=== PATIENT | female | born 1985 | race American Indian/Alaskan Native ===

== ENCOUNTER 2021-08-09 07:35 | Emergency (ER) | payer OTHER ==
[2021-08-09] MEDS ORDERED: diphenhydrAMINE 50 MG/ML VIAL IV ONE (08:07)
[2021-08-09] MEDS ORDERED: methylPREDNISolone Sod Succinate 125 MG/2 ML INJ IV ONE (08:07)
[2021-08-09] MEDS ORDERED: FAMOTIDINE 20 MG/2 ML INJ IV ONE (08:07)
--- NOTE | 2021-08-09 08:10 | Emergency Department Report ---
ED Allergic Reaction HPI - General Chief complaint: Allergic Reaction Stated complaint: SWOLLEN LIP Time Seen by Provider: 08/09/21 08:03 Source: patient Mode of arrival: Ambulatory Limitations: No Limitations - History of Present Illness Initial Comments: Patient is 36 years old female with history of hypertension on lisinopril. Patient presented to the ER complaining of upper lip swelling. Patient stated that symptoms started this morning. Patient denied any difficulty swallowing or difficulty breathing. No other swelling. MD Complaint: allergic reaction, facial swelling -: Sudden, This morning Exposure: medication Symptoms: lip swelling. denies: difficulty breathing, orolingual swelling, hoarseness, syncopy, dizziness, nausea Treatment Prior to Arrival: none Previous Allergy History: none - Related Data Home Medications Medication Instructions Recorded Confirmed Last Taken hydroCHLOROthiazide [HCTZ] 25 mg PO DAILY 08/09/21 08/09/21 08/09/21 lisinopriL [Lisinopril] 20 mg PO DAILY 08/09/21 08/09/21 08/09/21 Allergies Allergy/AdvReac Type Severity Reaction Status Date / Time lisinopril Allergy Angioedema Verified 08/09/21 09:17 ED Review of Systems ROS: Stated complaint: SWOLLEN LIP Other details as noted in HPI Comment: All other systems reviewed and negative Constitutional: denies: chills, fever Respiratory: denies: orthopnea, shortness of breath, SOB with exertion Cardiovascular: denies: chest pain, palpitations Gastrointestinal: denies: abdominal pain, nausea, vomiting Musculoskeletal: denies: back pain Neurological: denies: headache, weakness, numbness, paresthesias, confusion ED Past Medical Hx - Medications Home Medications: Home Medications Medication Instructions Recorded Confirmed Last Taken Type hydroCHLOROthiazide [HCTZ] 25 mg PO DAILY 08/09/21 08/09/21 08/09/21 History lisinopriL [Lisinopril] 20 mg PO DAILY 08/09/21 08/09/21 08/09/21 History ED Physical Exam - General Limitations: No Limitations General appearance: alert, in no apparent distress, anxious - Head Head exam: Present: atraumatic, normocephalic, normal inspection - Eye Eye exam: Present: normal appearance - ENT ENT exam: Present: normal exam, normal orophraynx, mucous membranes moist, other (Upper lip significantly swollen.) - Neck Neck exam: Present: normal inspection, full ROM. Absent: tenderness, meningismus - Respiratory Respiratory exam: Present: normal lung sounds bilaterally - Cardiovascular Cardiovascular Exam: Present: regular rate, normal rhythm, normal heart sounds - GI/Abdominal GI/Abdominal exam: Present: soft, normal bowel sounds. Absent: distended, tenderness, guarding, rebound, rigid, organomegaly, mass, bruit, pulsatile mass, hernia - Extremities Exam Extremities exam: Present: normal inspection, full ROM, normal capillary refill. Absent: tenderness, pedal edema, joint swelling, calf tenderness - Back Exam Back exam: Present: normal inspection, full ROM. Absent: CVA tenderness (R), CVA tenderness (L) - Neurological Exam Neurological exam: Present: alert, oriented X3, CN II-XII intact, normal gait, reflexes normal - Psychiatric Psychiatric exam: Present: anxious - Skin Skin exam: Present: warm, intact, normal color ED Course Vital Signs 08/09/21 08/09/21 08/09/21 07:58 07:59 09:10 Temperature 98.4 F Pulse Rate 95 H 89 81 Respiratory 16 20 21 Rate Blood Pressure 134/89 131/87 [Left] O2 Sat by Pulse 99 100 96 Oximetry 08/09/21 11:00 Temperature Pulse Rate 89 Respiratory 20 Rate Blood Pressure 110/60 [Left] O2 Sat by Pulse 99 Oximetry - Reevaluation(s) Reevaluation #1: 08/09/21 11:19 Patient reexamined. Patient stated that her symptoms are the same and there is no change. She denied any difficulty swallowing or difficulty breathing. ED Medical Decision Making - Lab Data Result diagrams: 08/09/21 08:17 08/09/21 08:17 - Medical Decision Making Patient is 36 years old female with history of hypertension on lisinopril. Patient presented to the ER complaining of upper lip swelling. Patient stated that symptoms started this morning. Patient denied any difficulty swallowing or difficulty breathing. No other swelling. Patient received Solu-Medrol, Benadryl and Pepcid. Patient observed in the ER for more than 6 hours. Swelling is limited to the lips. Patient still denying any difficulty breathing or difficulty swallowing. Patient advised to discontinue lisinopril immediately. I replaced her blood pressure medication with Norvasc 5 mg daily and advised her to follow-up with her primary doctor in the next 2 to 3 days and to return to the ER if she develop any new symptoms. Critical Care Time: Yes Critical care time in (mins) excluding proc time.: 35 Critical care attestation.: If time is entered above; I have spent that time in minutes in the direct care of this critically ill patient, excluding procedure time. ED Disposition Clinical Impression: Angioedema of lips Disposition: HOME / SELF CARE / HOMELESS Is pt being admited?: No Condition: Stable Instructions: Angioedema, [id number] Referrals: MINDY VALDES, [Primary Care Provider] - 3-5 Days
[2021-08-09 09:31] LABS: Basophils % (Auto) 0.3 % (0.0-1.8); Eosinophils # (Auto) 0.3 K/mm3 (0.0-0.4); Hematocrit 38.1 % (30.3-42.9); Hemoglobin 12.4 gm/dl (10.1-14.3); Lymphocytes # (Auto) 1.8 K/mm3 (1.2-5.4); Mean Corpuscular HGB Conc 33 % (30-34); Mean Corpuscular Volume 86 fl (79-97); Monocytes # (Auto) 0.7 K/mm3 (0.0-0.8); Monocytes % (Auto) 4.8 % (0.0-7.3); Platelet Count 305 K/mm3 (140-440); Red Blood Count 4.44 M/mm3 (3.65-5.03); Red Cell Distribution Width 15.7 % (13.2-15.2)
[2021-08-09 09:46] LABS: Alanine Aminotransferase 5 units/L (7-56); Albumin 4.2 g/dL (3.9-5); Blood Urea Nitrogen 10 mg/dL (7-17); Calcium 9.2 mg/dL (8.4-10.2); Hemolysis Index 4
[2021-08-09 09:48] LABS: BUN/Creatinine Ratio 14
[2021-08-09 14:02] VITALS: BP 103/58
== END 2021-08-09 14:03 | disposition home or self-care (01) ==
LOC: ED 07:35
DX: T78.3XXA Angioneurotic edema, initial encounter (principal); X58.XXXA Exposure to other specified factors, initial encounter; Z88.8 Allergy status to other drugs, medicaments and biological substances
CPT/HCPCS: 36415; 80053; 85025; 96374; 96375; 99283; J1200; J2930; J3490